=== PATIENT | male | born 1945 | race Caucasian/White ===

== ENCOUNTER 2017-07-12 11:34 | Day surgery (SDC) | payer BC ==
[2017-07-11 12:33] VITALS: BMI 28.1
[2017-07-12] MEDS ORDERED: MIDAZOLAM HCL 2 MG/2 ML SINGLE DOSE VIAL ONE ×4 (14:04→14:41)
[2017-07-12] MEDS ORDERED: ROPIVACAINE HCL 0.5% 30ML VIAL ONE (14:07)
[2017-07-12] MEDS ORDERED: DEXAMETHASONE SOD PHOSPHATE/PF 10 MG/ML SDV ONE (14:16)
--- NOTE | 2017-07-12 15:29 | HP ---
Satellite [facility] - Chief Complaint Chief Complaint: right knee pain - Past Medical History Allergies/Adverse Reactions: Allergies Allergy/AdvReac Type Severity Reaction Status Date / Time amoxicillin Allergy Intermediate Rash Verified 07/11/17 12:21 - Current Medications Current Medications: Home Medications Medication Instructions Recorded Nebivolol [Bystolic -] 5 mg PO DAILY 07/11/17 Telmisartan/Hydrochlorothiazid 1 each PO DAILY 07/11/17 [Telmisartan-Hctz 80-25 mg Tab] Oxycodone HCl/Acetaminophen 1 tab PO Q4H 07/12/17 [Percocet 5-325 mg Tablet] Satellite Physical Exam - Physical Examination Vital Signs: Vital Signs Period Temp Pulse Resp BP Sys/Moreno Pulse Ox Last 24 Hr 98 F 77 18 121/72 96 General Appearance: Well Nourished, Well Developed, Alert & Oriented x3 ENT: Clear Lung: Normal air movement Heart: Regular rate & rhythm Extremities: Other (right knee- + swelling, + defect, + ttp, unable to SLR, calf soft, nt nvi) Neurological: Intact, Alert, Oriented Satellite Impression/Plan - Impression/Plan Impression: right quad tendon rupture Operative Procedure: right quad tendon repair Date to be Performed: 07/12/17
[2017-07-12] MEDS ORDERED: ceFAZolin SODIUM 1 GM VIAL ONE (15:36)
[2017-07-12] MEDS ORDERED: PROPOFOL 20 ML ONE ×2 (15:38)
[2017-07-12] MEDS ORDERED: ceFAZolin SODIUM 1 GM VIAL IVPB ONE (15:41)
[2017-07-12] MEDS ORDERED: PROMETHAZINE HCL 25 MG/1 ML VIAL IVPUSH PRN (16:16)
[2017-07-12] MEDS ORDERED: ONDANSETRON 4 MG/2 ML VIAL IVPUSH PRN (16:16)
[2017-07-12] MEDS ORDERED: LACTATED RINGERS SOLUTION 1,000 ML IV SCH (16:30)
--- NOTE | 2017-07-12 16:34 | OP ---
Operative Note - Note: Operative Date: 07/12/17 ([facility]) Pre-Operative Diagnosis: right quad tendon rupture Operation: right quad tendon repair Post-Operative Diagnosis: Same as Pre-op Surgeon: Hao Heath Line Analyst: Damián Link Anesthesiologist/SPINNER FIXER: Mariela Back Anesthesia: Spinal, Local Estimated Blood Loss (mls): 5 (tourniquet) Operative Report Dictated: Yes
[2017-07-12 18:40] VITALS: TEMP 98.1
[2017-07-12 21:27] VITALS: BP 124/68; PULSE 81
--- NOTE | 2017-07-13 07:54 | OP ---
DATE OF OPERATION: 07/12/2017 PREOPERATIVE DIAGNOSIS: Ruptured right quadriceps tendon. POSTOPERATIVE DIAGNOSIS: Ruptured right quadriceps tendon. PROCEDURE PERFORMED: Open right quadriceps tendon repair, medial and lateral retinacular repair. SURGEON: Perla Lisa MD ASSISTANTS: FRANCESCA Painting; Mariela Back CRNA ANESTHESIA: Spinal anesthesia. DRAINS: None. COMPLICATIONS: None. BLOOD LOSS: None. BLOOD GIVEN: None. FLUID REPLACEMENT: 500 mL. INDICATIONS: The patient is a 71-year-old male with the preoperative diagnosis of an acute rupture of the right distal quadriceps tendon. After understanding the potential risks, complications, alternatives and benefits of surgery versus nonsurgical treatment, the patient elected to undergo this procedure. DESCRIPTION OF PROCEDURE: The patient was brought to the operating room, peripheral IV placed, IV sedation given. Two grams of IV Ancef was given. Spinal anesthesia was induced, with sedation. A tourniquet was applied to the right upper thigh. The right lower extremity was prepped and draped in sterile fashion, elevated and exsanguinated with an Esmarch bandage. The tourniquet was inflated to 275 mmHg. A longitudinal incision was marked out with a marking pen. The incision was made with a number 15 scalpel blade. Subcutaneous hemostasis was achieved with Bovie cautery. Dissection was done down through the superficial fascia, where a large hematoma was evacuated. With careful blunt dissection and using Metzenbaum scissors, I was able to identify the distal quadriceps tendon. There was a large medial and lateral retinacular tear, as well as a complete distal quadriceps insertional tear. The ends were freshened up. A fishmouth trough was made with a rongeur in the top of the patella. The area was copiously irrigated and washed out. The joint was inspected. What I could see looked good. Next, a put in 3 FiberWires in a running up-and-down whipstitch locking fashion. The 6 tails were brought out distally. All slack was removed. Then, using the Beath pin, I fed these FiberWires through the 2 holes, from superior to inferior through the patella. I put a bump underneath the ankle, taking tension off the repair, and I was able to bring the quadriceps tendon down to the top of the patella with ease. I then made 3 knots with 2 tails each of the FiberWire over the distal pole of the patella. Then I did insurance stitches between them. Next, I used number 1 TiCron suture to repair the medial and the lateral retinaculum, and to supplement the central aspect of the quadriceps tendon repair. The area was irrigated and washed out. Everything looked good. 2-0 Vicryl was used to close the deep dermal layer. Final skin reapproximation was done with a row of eliz. The area was then washed and dried, covered with Xeroform, 4 x 4, Webril and two 6-inch Alvaro bandage. The tourniquet was taken down after a total tourniquet time of 40 minutes. A knee immobilizer was applied with the ice packs. There were no complications during the case. The patient tolerated the procedure quite well and was brought to the ambulatory recovery room in stable condition. PERLA LISA M.D. [id number]
== END 2017-07-12 21:11 | disposition home or self-care (01) ==
LOC: JASU-SURG 11:34
PROVIDERS: ATTEND Orthopaedic Surgery
PROC: 0MNN0ZZ Release Right Knee Bursa and Ligament, Open Approach (ICD-10-PCS; 2017-07-12)
PROC: 0LQL0ZZ Repair Right Upper Leg Tendon, Open Approach (ICD-10-PCS; principal; 2017-07-12 13:00)
DX: S76.111A Strain of right quadriceps muscle, fascia and tendon, initial encounter (principal); X58.XXXA Exposure to other specified factors, initial encounter; Y93.9 Activity, unspecified; Y92.9 Unspecified place or not applicable
CPT/HCPCS: 94760